=== PATIENT | male | born 1990 | race Caucasian/White ===

== ENCOUNTER 2020-02-16 17:59 | Emergency (ER) | payer BC ==
[~2020-02-16] VITALS: Ht 172.7 cm; Wt 79.4 kg
[2020-02-16 18:33] LABS: BASOPHILS # (AUTO) 0.1 /CMM (0.0-0.2); BASOPHILS % (AUTO) 0.8 % (0.0-2.0); EOSINOPHILS % (AUTO) 2.9 % (0.0-6.0); HEMATOCRIT 46 % (39-51); HEMOGLOBIN 15.3 g/dL (13.5-17.5); LYMPHOCYTES # (AUTO) 3.6 /CMM (0.8-4.8); LYMPHOCYTES % (AUTO) 34.5 % (20.0-44.0); MEAN CORPUSCULAR HGB CONC 34 g/dl (31.0-36.0); MEAN CORPUSCULAR VOLUME 90 fL (80-96); MONOCYTES # (AUTO) 1.1 /CMM (0.1-1.30); MONOCYTES % (AUTO) 10.9 % (2.0-12.0); NEUTROPHILS # (AUTO) 5.4 /CMM (1.8-8.9); NEUTROPHILS % (AUTO) 50.9 % (43.0-81.0); PLATELET COUNT (AUTO) 236 /CMM (150-450); RED BLOOD CELL COUNT(AUTO) 5.08 MIL/uL (4.5-6.0); WHITE BLOOD COUNT (AUTO) 10.5 K/uL (4.3-11.0)
[2020-02-16 18:46] LABS: BILIRUBIN,URINE Negative (NEGATIVE); COLOR,URINE YELLOW (YELLOW); LEUKOCYTE ESTERASE ,URINE Negative (NEGATIVE); NITRITE, URINE Negative (NEGATIVE); PH,URINE 6.5 (5.0-8.0); PROTEIN,URINE Negative (NEGATIVE); UGLUCOSE Negative (NEGATIVE); UROBILINOGEN,URINE 0.2 EU/dL (0.2)
[2020-02-16 18:54] LABS: ALANINE AMINOTRANSFERASE 53 U/L (12-78); ALBUMIN 4.4 g/dL (3.4-5.0); ALCOHOL, BLOOD < 3 mg/dL (0-0); ALKALINE PHOSPHATASE 107 U/L (46-116); ASPARTATE AMINOTRANSFERASE 4 U/L (15-37); BILIRUBIN,DIRECT 0.1 mg/dL (0.0-0.2); BILIRUBIN,TOTAL 0.3 mg/dL (0.2-1.0); CALCIUM, SERUM 9.2 mg/dL (8.5-10.1); CARBON DIOXIDE 30 mmol/L (21-32); CHLORIDE 102 mmol/L (98-107); GLUCOSE 100 mg/dL (74-106); POTASSIUM 4.3 mmol/L (3.5-5.1); SODIUM SERUM 140 mmol/L (136-145); TOTAL PROTEIN, SERUM 8.5 g/dL (6.4-8.2); UREA NITROGEN, BLOOD 18 mg/dL (7-18)
[2020-02-16 19:01] LABS: ACETAMINOPHEN < 2 ug/ml (10-30)
--- NOTE | 2020-02-16 19:18 | NUR ---
Nurse knowledge exchange w/pediatric associate or continuity of Care
--- NOTE | 2020-02-16 21:16 | NUR ---
facesheet and clinicals faxed to karlos irwin.
--- NOTE | 2020-02-16 23:45 | NUR ---
per thessa, pt still needs insurance verified. will update
--- NOTE | 2020-02-17 04:35 | NUR ---
PER DANIKA FROM [employer], THEY ARE STILL WORKING ON INSURANCE AUTHORIZATION
[2020-02-17 08:13] VITALS: BP 120/68
--- NOTE | 2020-02-17 10:01 | NUR ---
Received a call from Art from [facility]/Dr. Butler number for report [phone].
--- NOTE | 2020-02-17 10:12 | NUR ---
report given to josé miguel mascorro pending transport.
--- NOTE | 2020-02-17 11:01 | NUR ---
CALLED [facility] FOR TRANSPORT TO [facility]. ETA [id number]. TRIP NUMBER [id number].
--- NOTE | 2020-02-17 14:50 | NUR ---
PATIENT TRANSFERRED TO [facility]. NO DISTRESS NOTED. VSS.
== END 2020-02-17 15:17 ==
LOC: ER 18:05
DX: F99 Mental disorder, not otherwise specified (principal); F20.9 Schizophrenia, unspecified; Z20.822 Contact with and (suspected) exposure to COVID-19; Z91.14 Patient's other noncompliance with medication regimen; F32.9 Major depressive disorder, single episode, unspecified
CPT/HCPCS: 36415; 80048; 80076; 80299; 80307; 80320; 81003; 85025; 87426; 99285; C9803; G0480